=== PATIENT | female | born 1940 | race Caucasian/White ===

== ENCOUNTER 2018-07-14 20:38 | Emergency (ER) | payer BC ==
[~2018-07-14] VITALS: Ht 157.5 cm; Wt 49.9 kg
== END 2018-07-15 01:22 | disposition home or self-care (01) ==
LOC: ER 20:38
DX: S01.01XA Laceration without foreign body of scalp, initial encounter (principal); Z23 Encounter for immunization; W01.0XXA Fall on same level from slipping, tripping and stumbling without subsequent striking against object, initial encounter
CPT/HCPCS: 12011; 70450; 90471; 90714; 99283-25

== ENCOUNTER → 2018-10-22 | Outpatient (CLI) | payer BC ==
[~2018-10-22] MED LIST: Prinivil10 MG PO
[2018-10-22 14:42] LABS: Source, Urine Clean Catch
[2018-10-22 15:15] LABS: Bilirubin, Urine Neg (Neg); Blood, Urine Neg (Neg); Glucose Qualitative, Urine Neg (Neg); Ketones, Urine Neg (Neg); Leukocyte Esterase, Urine Neg (Neg); Nitrite, Urine Neg (Neg); Protein, Urine Neg (Neg); Urobilinogen, Urine NORM (Normal)
[2018-10-22 15:41] LABS: Appearance, Urine Clear (Clear); Color, Urine Pale Yellow (P-Yellow)
== END ==
LOC: LAB SHORT 14:40 → LAB 14:40
PROVIDERS: Student in an Organized Health Care Education/Training Program
DX: N39.0 Urinary tract infection, site not specified (principal)
CPT/HCPCS: 81003

== ENCOUNTER → 2019-10-13 | Outpatient (CLI) | payer BC ==
[2019-10-13 19:31] LABS: Hematocrit 39.7 % (33.0-51.0); Hemoglobin 12.6 g/dL (11.5-16.0); Mean Corpuscular HGB 29.8 pg (26.0-34.0); Mean Corpuscular HGB Conc 31.7 g/dL (31.5-36.5); Mean Corpuscular Volume 94 fL (80-100); Mean Platelet Volume 9.8 fL (9.1-12.4); Platelet Count 369 K/mm3 (150-400); RDW Coefficient Variation 12.6 % (11.7-14.2); RDW Standard Deviation 43.2 fL (35.1-46.3); Red Blood Cell Count 4.23 M/mm3 (3.80-5.20); White Blood Cell Count 6.93 K/mm3 (4.00-11.30)
[2019-10-13 19:45] LABS: International Normalized Ratio 0.98; Prothrombin Time Results 10.5 Sec (9.7-11.5)
== END ==
LOC: LAB SHORT 14:10 → LAB 14:10
PROVIDERS: Nurse Practitioner Family
DX: E78.5 Hyperlipidemia, unspecified (principal); R60.9 Edema, unspecified; R04.0 Epistaxis; D64.9 Anemia, unspecified; F10.20 Alcohol dependence, uncomplicated; R73.09 Other abnormal glucose
CPT/HCPCS: 83036; 83880; 85027; 85610

== ENCOUNTER → 2019-10-18 | Outpatient (CLI) | payer BC ==
[2019-10-18 12:17] LABS: C-REACTIVE PROTEIN, EXT RANGE 0.998 mg/dL (0.000-0.300); Magnesium, Blood 2.1 mg/dL (1.6-2.4)
[2019-10-18 12:24] LABS: Alanine Aminotransfer (ALT/SGP 33 U/L (12-78); Albumin, Blood 3.9 g/dL (3.4-5.0); Albumin/Globulin Ratio 1.1 (0.8-1.8); Alk Phos 90 U/L (50-136); Anion Gap 4 mmol/L (6-16); Aspartate Aminotrans (AST/SGOT 26 U/L (12-37); Bilirubin, Total 0.2 mg/dL (0.1-1.0); Blood Urea Nitrogen 14 mg/dL (8-24); Bun/Creatinine Ratio 15.9 (12.0-20.0); CO2, Blood 28 mmol/L (21-32); Calcium, Blood 9.8 mg/dL (8.5-10.1); Chloride, Blood 106 mmol/L (98-108); Creatinine, Blood 0.88 mg/dL (0.40-1.00); Globulin, Blood 3.7 g/dL (2.2-4.0); Glomerular Filtration Rate >60 (60-); Glucose, Blood 94 mg/dL (70-99); Sodium, Blood 138 mmol/L (136-145); Total Protein, Blood 7.6 g/dL (6.4-8.2)
[2019-10-18 16:22] LABS: CHOL/HDL RATIO 5.2; Cholesterol 289 mg/dL (50-200); HDL Cholesterol 56 mg/dL (>39); LDL/HDL RATIO 3.7; Low Density Lipoprotein Chol 205 mg/dL (0-110); Triglycerides 141 mg/dL (30-160); Very Low Density Lipoprot Chol 28 mg/dL (6-32)
[2019-10-18 16:33] LABS: Percent Saturation 22.8 % (15.0-50.0)
== END ==
LOC: LAB SHORT 11:03 → LAB 11:03
PROVIDERS: Nurse Practitioner Family; Student in an Organized Health Care Education/Training Program
DX: D64.9 Anemia, unspecified (principal); R60.9 Edema, unspecified; F10.20 Alcohol dependence, uncomplicated; R04.0 Epistaxis; E78.5 Hyperlipidemia, unspecified
CPT/HCPCS: 80053; 80061; 82607; 82728; 82746; 83540; 83550; 83735; 86140

== ENCOUNTER → 2019-11-03 | Outpatient (CLI) | payer BC ==
[2019-11-03 17:12] LABS: Source, Urine Clean Catch
[2019-11-03 17:55] LABS: Bilirubin, Urine Neg (Neg); Blood, Urine Neg (Neg); Glucose Qualitative, Urine Neg (Neg); Ketones, Urine Neg (Neg); Leukocyte Esterase, Urine Neg (Neg); Nitrite, Urine Neg (Neg); Protein, Urine Neg (Neg); Urobilinogen, Urine NORM (Normal)
[2019-11-03 18:05] LABS: Appearance, Urine Clear (Clear); Color, Urine Yellow (P-Yellow)
== END ==
LOC: LAB 17:10 → LAB SHORT 17:10
PROVIDERS: Nurse Practitioner Family
DX: N39.0 Urinary tract infection, site not specified (principal)
CPT/HCPCS: 81003

== ENCOUNTER 2020-12-13 07:47 | Emergency (ER) | payer BC ==
[~2020-12-13] VITALS: Ht 157.5 cm; Wt 65.8 kg
[2020-12-13] MEDS ORDERED: ASPI81CH PO (08:10)
[2020-12-13] MEDS ORDERED: ZOCOR20 MG PO (08:12)
[2020-12-13] MEDS ORDERED: METO50ER PO (08:12)
[2020-12-13] MEDS ORDERED: FAMO10 PO (08:52)
[2020-12-13] MEDS ORDERED: ACETAMINOP160 MG/51 PO (08:53)
[2020-12-13] MEDS ORDERED: TRAM50 PO (08:53)
[2020-12-13 08:56] LABS: BASOPHILS ABSOLUTE AUTO 0.04 K/mm3 (0.00-0.23); BASOPHILS PERCENT AUTO 0 % (0-2); EOSINOPHILS ABSOLUTE AUTO 0.16 K/mm3 (0.00-0.68); EOSINOPHILS PERCENT AUTO 2 % (0-6); Hematocrit 38.6 % (33.0-51.0); Hemoglobin 12.6 g/dL (11.5-16.0); IMMATURE GRAN ABSOLUTE AUTO 0.02 K/mm3 (0.00-0.10); IMMATURE GRAN PERCENT AUTO 0 % (0-1); LYMPHOCYTES ABSOLUTE AUTO 1.35 K/mm3 (0.84-5.20); LYMPHOCYTES PERCENT AUTO 14 % (21-46); MONOCYTES ABSOLUTE AUTO 0.48 K/mm3 (0.16-1.47); MONOCYTES PERCENT AUTO 5 % (4-13); Mean Corpuscular HGB 29.5 pg (26.0-34.0); Mean Corpuscular HGB Conc 32.6 g/dL (31.5-36.5); Mean Corpuscular Volume 90 fL (80-100); Mean Platelet Volume 9.3 fL (9.1-12.4); NEUTROPHILS ABSOLUTE AUTO 7.76 K/mm3 (1.96-9.15); NEUTROPHILS PERCENT AUTO 79 % (41-73); Platelet Count 343 K/mm3 (150-400); RDW Coefficient Variation 12.4 % (11.7-14.2); RDW Standard Deviation 40.7 fL (35.1-46.3); Red Blood Cell Count 4.27 M/mm3 (3.80-5.20); White Blood Cell Count 9.81 K/mm3 (4.00-11.30)
[2020-12-13] MEDS ORDERED: MULVITA PO (08:56)
[2020-12-13] MEDS ORDERED: THERA-D2000 UNIT PO (08:56)
[2020-12-13] MEDS ORDERED: LORA10ER PO (08:57)
[2020-12-13 09:15] LABS: Alanine Aminotransfer (ALT/SGP 27 U/L (12-78); Albumin, Blood 3.8 g/dL (3.4-5.0); Alk Phos 92 U/L (50-136); Anion Gap 4 mmol/L (6-16); Aspartate Aminotrans (AST/SGOT 26 U/L (12-37); Bilirubin, Total 0.2 mg/dL (0.1-1.0); Blood Urea Nitrogen 18 mg/dL (8-24); Bun/Creatinine Ratio 20.2 (12.0-20.0); CO2, Blood 30 mmol/L (21-32); Calcium, Blood 9.7 mg/dL (8.5-10.1); Chloride, Blood 108 mmol/L (98-108); Creatinine, Blood 0.89 mg/dL (0.40-1.00); Globulin, Blood 3.9 g/dL (2.2-4.0); Glomerular Filtration Rate >60 (60-); Glucose, Blood 129 mg/dL (70-99); Potassium, Blood 3.9 mmol/L (3.5-5.5); Sodium, Blood 142 mmol/L (136-145); Total Protein, Blood 7.7 g/dL (6.4-8.2)
[2020-12-13] MEDS ORDERED: ONDA4ODT MM (09:41)
== END 2020-12-13 10:13 | disposition home or self-care (01) ==
LOC: ER 07:47
PROVIDERS: Physician Assistant
DX: R11.2 Nausea with vomiting, unspecified (principal); R04.0 Epistaxis; Z79.82 Long term (current) use of aspirin; Z88.8 Allergy status to other drugs, medicaments and biological substances; Z88.5 Allergy status to narcotic agent; Z91.040 Latex allergy status
CPT/HCPCS: 36415; 73030; 80053; 83690; 85025; 99283-25